=== PATIENT | female | born 1930 | race Caucasian/White ===

== ENCOUNTER 2018-03-24 09:44 | Emergency (ER) | payer MEDICARE, BC ==
[~2018-03-24] VITALS: Ht 162.6 cm; Wt 55.0 kg
[~2018-03-24 09:44] MED LIST: AMOXICILLIN250 M1 PO; COUMADIN5 MG PO; DURAGESIC50 MCG/HR TD; LISINOPRIL2.5 MG PO; LORTAB 10 PO; MILK OF MAG30 ML/UDC PO; MULTIVITAMIN PO; PROMETHAZINE HC25 MG PO
[2018-03-24] MEDS ORDERED: LORTAB 1010 MG PO (10:33)
[2018-03-24] MEDS ORDERED: ASPERCREME LIDOCA41 TOP (11:06)
[2018-03-24 11:45] VITALS: BP 97/60
[2018-03-27] MEDS ORDERED: JANTOVEN1 MG PO (20:13)
[2018-03-27] MEDS ORDERED: CLINDAMYCIN HC150 MG PO (21:07)
== END 2018-03-24 11:45 | disposition home or self-care (01) ==
LOC: ED 09:44
DX: S76.012A Strain of muscle, fascia and tendon of left hip, initial encounter (principal); M25.552 Pain in left hip; Z96.642 Presence of left artificial hip joint

== ENCOUNTER 2018-05-01 21:33 | Emergency (ER) | payer MEDICARE, BC ==
[~2018-05-01] VITALS: Ht 152.4 cm; Wt 41.3 kg
[~2018-05-01 21:33] MED LIST changes: +ASPERCREME LIDOCA41 TOP; +ASPIRIN ADULT L81 M2 PO; +ATORVASTATIN CA20 MG PO; +CLINDAMYCIN HC150 MG PO; +JANTOVEN1 MG PO; +LORTAB 1010 MG PO; +METOPROL TAR25 MG PO; +NITROSTAT0.3 MG SL; +TOPROL XL25 MG PO
[2018-05-01 22:10] VITALS: BP 128/74
== END 2018-05-01 22:10 | disposition home or self-care (01) ==
LOC: ED 21:33
DX: L76.21 Postprocedural hemorrhage of skin and subcutaneous tissue following a dermatologic procedure (principal); I48.91 Unspecified atrial fibrillation; Y83.8 Other surgical procedures as the cause of abnormal reaction of the patient, or of later complication, without mention of misadventure at the time of the procedure; Z86.73 Personal history of transient ischemic attack (TIA), and cerebral infarction without residual deficits; Z85.828 Personal history of other malignant neoplasm of skin

== ENCOUNTER → 2018-07-17 | Outpatient (REF) | payer MEDICARE, BC ==
[2018-07-17 11:19] LABS: HEMATOCRIT 38.7 % (37.0-47.0); HEMOGLOBIN 12.6 g/dl (12.0-16.0); IMMATURE GRANULOCYTES 0.4 % (0.0-5.0); MEAN CORPUSCULAR HGB 31.6 pG CALC (26.0-32.0); MEAN CORPUSCULAR HGB CONC 32.6 g/L CALC (32.0-36.0); NEUT# 2.6 thou/uL (2.00-7.15); RED BLOOD COUNT 3.99 mill/uL (4.20-5.60); RED CELL DISTRI WIDTH 14.8 % (11.5-15.5)
[2018-07-17 11:37] LABS: INTERNATIONAL NORMALIZED RATIO 2.2 RATIO (0.7-1.3); PROTHROMBIN TIME 22.4 SECONDS (9.0-12.5)
== END | disposition home or self-care (01) ==
LOC: LAB 10:44
PROVIDERS: ATTEND Family Medicine
DX: D64.9 Anemia, unspecified (principal); Z79.01 Long term (current) use of anticoagulants

== ENCOUNTER 2018-08-29 12:22 | Emergency (ER) | payer MEDICARE, BC ==
[~2018-08-29] VITALS: Ht 152.4 cm; Wt 44.1 kg
[2018-08-29 13:08] LABS: HEMATOCRIT 45.9 % (37.0-47.0); HEMOGLOBIN 15.5 g/dl (12.0-16.0); IMMATURE GRANULOCYTES 0.6 % (0.0-5.0); MEAN CELL VOLUME 92.9 fL CALC (80.0-100.0); MEAN CORPUSCULAR HGB 31.4 pG CALC (26.0-32.0); MEAN CORPUSCULAR HGB CONC 33.8 g/L CALC (32.0-36.0); NEUT# 6.6 thou/uL (2.00-7.15); RED BLOOD COUNT 4.94 mill/uL (4.20-5.60); RED CELL DISTRI WIDTH 15.7 % (11.5-15.5)
[2018-08-29 13:21] LABS: ALBUMIN 4.5 g/dL (3.2-5.0); ALKALINE PHOSPHATASE 154 u/l (38-126); ANION GAP 16 (6-22 (CALC)); BILIRUBIN, TOTAL 1.5 mg/dL (0.0-1.4); BUN 24 mg/dL (8-23); BUN/CREATININE RATIO 23 (12-20 (CALC)); CARBON DIOXIDE 36 mmol/l (22-30); CHLORIDE 93 mmol/l (95-108); CREATININE 1.1 mg/dL (0.5-1.0); GFR 47 ML/MIN (>=60 (CALC)); GFR FOR AFR.AMER. 57 ML/MIN (>=60 (CALC)); LIPASE 21 u/l (23-300); POTASSIUM 3.7 mmol/l (3.5-5.1); SGOT/AST 44 u/l (9-36); SODIUM 141 mmol/l (137-146)
[2018-08-29 13:23] LABS: TOTAL PROTEIN 8.6 g/dL (6.3-8.2)
[2018-08-29] MEDS ORDERED: WARFARIN1 MG PO (13:38)
[2018-08-29 14:18] LABS: ACT PARTIAL THROMBO TIME 26.8 SECONDS (20.0-32.5)
[2018-08-29 14:22] LABS: INTERNATIONAL NORMALIZED RATIO 1.4 RATIO (0.7-1.3); PROTHROMBIN TIME 15.1 SECONDS (9.0-12.5)
[2018-08-29 16:39] VITALS: BP 134/66
== END 2018-08-29 16:39 | disposition short-term general hospital (02) ==
LOC: ED 12:22
PROVIDERS: Emergency Medicine
DX: I62.9 Nontraumatic intracranial hemorrhage, unspecified (principal); R40.2432 Glasgow coma scale score 3-8, at arrival to emergency department; R47.01 Aphasia; I48.91 Unspecified atrial fibrillation; Z79.01 Long term (current) use of anticoagulants; R10.13 Epigastric pain; R11.10 Vomiting, unspecified; N20.0 Calculus of kidney

== ENCOUNTER 2018-09-07 11:20 | Emergency (ER) | payer MEDICARE, BC ==
[~2018-09-07] VITALS: Ht 152.4 cm; Wt 42.0 kg
[~2018-09-07 11:20] MED LIST changes: +WARFARIN1 MG PO
[2018-09-07] MEDS ORDERED: ESCITALOPRAM OX10 MG PO (11:41)
[2018-09-07] MEDS ORDERED: LIPITOR10 M1 PO (11:41)
[2018-09-07] MEDS ORDERED: METOPROL TAR25 MG PO (11:41)
[2018-09-07 11:59] LABS: IMMATURE GRANULOCYTES 0.5 % (0.0-5.0); MEAN CELL VOLUME 94.2 fL CALC (80.0-100.0); MEAN CORPUSCULAR HGB 31.7 pG CALC (26.0-32.0); MEAN CORPUSCULAR HGB CONC 33.6 g/L CALC (32.0-36.0); NEUT# 3.18 thou/uL (2.00-7.15); RED BLOOD COUNT 4.17 mill/uL (4.20-5.60); RED CELL DISTRI WIDTH 17.1 % (11.5-15.5)
[2018-09-07 12:05] LABS: HEMATOCRIT 39.3 % (37.0-47.0); HEMOGLOBIN 13.2 g/dl (12.0-16.0)
[2018-09-07 12:21] LABS: INTERNATIONAL NORMALIZED RATIO 3.9 RATIO (0.7-1.3); PROTHROMBIN TIME 40.8 SECONDS (9.0-12.5)
[2018-09-07 12:27] LABS: ALKALINE PHOSPHATASE 113 u/l (38-126); BILIRUBIN, TOTAL 0.8 mg/dL (0.0-1.4); BUN 22 mg/dL (8-23); BUN/CREATININE RATIO 28 (12-20 (CALC)); CREATININE 0.8 mg/dL (0.5-1.0); GFR > 60 ML/MIN (>=60 (CALC)); GFR FOR AFR.AMER. > 60 ML/MIN (>=60 (CALC)); SODIUM 135 mmol/l (137-146)
[2018-09-07 12:28] LABS: ALBUMIN 2.9 g/dL (3.2-5.0); ANION GAP 10 (6-22 (CALC)); CARBON DIOXIDE 25 mmol/l (22-30); CHLORIDE 105 mmol/l (95-108); SGOT/AST 81 u/l (9-36); TOTAL PROTEIN 5.7 g/dL (6.3-8.2)
[2018-09-07 12:40] VITALS: BP 111/68
== END 2018-09-07 12:46 | disposition home or self-care (01) ==
LOC: ED 11:20
PROVIDERS: Emergency Medicine
DX: D65 Disseminated intravascular coagulation [defibrination syndrome] (principal); I48.91 Unspecified atrial fibrillation; Z79.01 Long term (current) use of anticoagulants